=== PATIENT | male | born 1945 | race Caucasian/White ===

== ENCOUNTER → 2017-12-29 | Outpatient (REF) | payer MEDICARE, BC | LOC: M LAB REF 12:16 | DX: N39.0 Urinary tract infection, site not specified (principal) | CPT/HCPCS: 87086 ==

== ENCOUNTER → 2018-01-07 | Outpatient (REF) | payer MEDICARE, BC | LOC: M LAB REF 19:20 | DX: R35.0 Frequency of micturition (principal) | CPT/HCPCS: 87086 ==

== ENCOUNTER → 2018-09-02 | Outpatient (REF) | payer MEDICARE, BC | LOC: M LAB REF 12:35 | PROVIDERS: ATTEND Physician Assistant Medical | DX: N39.0 Urinary tract infection, site not specified (principal) ==

== ENCOUNTER → 2019-09-27 | Outpatient (REF) | payer MEDICARE, BC | LOC: M LAB REF 16:37 | PROVIDERS: ATTEND Physician Assistant | DX: R30.0 Dysuria (principal) ==

== ENCOUNTER → 2019-10-02 | Outpatient (REF) | payer MEDICARE, BC ==
[2019-10-02 16:40] LABS: BACTERIA, URINE AUTO NEGATIVE (NEGATIVE); MUCUS, URINE SMALL (NEGATIVE); RBC, URINE AUTO 4 /HPF (0-3); SQUAMOUS EPITHELIAL CELL UR AU 0 /HPF (0-6); WBC, URINE AUTO 44 /HPF (0-3)
[2019-10-02 18:02] LABS: APPEARANCE, URINE CLEAR (CLEAR); BILIRUBIN, URINE AUTO NEGATIVE (NEGATIVE); BLOOD, URINE BLOOD NEGATIVE (NEGATIVE); COLOR, URINE AMBER (YELLOW); GLUCOSE, URINE (UA) AUTO NEGATIVE (NEGATIVE); KETONE, URINE AUTO NEGATIVE (NEGATIVE); LEUKOCYTE ESTERASE, URINE AUTO 3+ (NEGATIVE); NITRITE, URINE AUTO NEGATIVE (NEGATIVE); PROTEIN, URINE AUTO NEGATIVE (NEGATIVE); SPECIFIC GRAVITY URINE AUTO 1.017 (1.002-1.035); UROBILINOGEN, URINE AUTO 0.2 mg/dL (0.0-2.0)
== END ==
LOC: M SMT 14:59
PROVIDERS: ATTEND Nurse Practitioner Family
DX: R35.0 Frequency of micturition (principal)
CPT/HCPCS: 51798; 81001; 87086; G0463

== ENCOUNTER → 2019-11-10 | Outpatient (REF) | payer MEDICARE, BC ==
[2019-12-27 04:19] LABS: CALCIUM LEVEL 9.4 MG/DL (8.8-10.2); CREATININE FOR GFR 1.33 MG/DL (0.70-1.30); GLOMERULAR FILTRATION RATE 56.1 (>42); POTASSIUM SERUM 4.3 MEQ/L (3.5-5.1)
== END ==
LOC: M SMT 12:06
PROVIDERS: ATTEND Nurse Practitioner Family
DX: R31.29 Other microscopic hematuria (principal)

== ENCOUNTER → 2019-11-17 | Outpatient (CLI) | payer MEDICARE, BC ==
--- NOTE | 2019-12-29 10:41 | REP ---
CT ABDOMEN AND PELVIS WITHOUT IV OR ORAL CONTRAST HISTORY: Benign prostatic hypertrophy. COMPARISON: None available. CT FINDINGS: Digital preliminary fire regulator radiograph demonstrates a normal bowel gas pattern. Images at lung window settings of the lung bases demonstrate three tiny 2-3 mm nodular densities in the left lower lobe without discernable calcification and some bibasilar linear fibrosis. No pleural effusion is seen. Vascular calcification is seen in the coronary distribution bilaterally. Normal adrenal glands are seen. The right kidney is not present consistent with previous nephrectomy. No left-sided hydronephrosis, mass, or calculus is seen. There are two small cysts in the lower pole of the left kidney the largest of which measures 1.8 cm in diameter. Normal appendix is seen. Small and large bowel loops are unremarkable. No retroperitoneal mass or adenopathy is seen. There is left colon diverticulosis without CT evidence of diverticulitis. Prostate gland is enlarged and contains multiple dystrophic calcifications. Urinary bladder is intact. No abdominal wall defect is seen. No blastic or lytic bony destructive lesion is seen. There are degenerative spondylosis changes in the lumbar spine. IMPRESSION: The patient is apparently status post right nephrectomy. No mass or adenopathy is seen. Prostate is enlarged. Small cyst left kidney lower pole. Left colonic diverticulosis. No acute intraabdominal abnormality. MTDD
== END ==
LOC: M RAD 09:30
PROVIDERS: ATTEND Nurse Practitioner Women's Health
DX: R31.29 Other microscopic hematuria (principal); Z90.5 Acquired absence of kidney

== ENCOUNTER → 2020-09-25 | Outpatient (REF) | payer MEDICARE, BC | LOC: M WUC 11:20 | PROVIDERS: ATTEND Physician Assistant | DX: R30.0 Dysuria (principal) ==

== ENCOUNTER → 2021-09-24 | Outpatient (REF) | payer MEDICARE, BC | LOC: M LAB REF 12:14 | PROVIDERS: ATTEND Physician Assistant | DX: R35.0 Frequency of micturition (principal) ==

== ENCOUNTER → 2023-10-06 | Outpatient (REF) | payer MEDICARE, BC | LOC: M LAB REF 11:17 | PROVIDERS: ATTEND Student in an Organized Health Care Education/Training Program | DX: R30.0 Dysuria (principal) ==

== ENCOUNTER → 2023-11-21 | Outpatient (REF) | payer MEDICARE, BC ==
[2023-11-21 18:09] LABS: APPEARANCE, URINE CLOUDY (CLEAR); BACTERIA, URINE AUTO NEGATIVE (NEGATIVE); BILIRUBIN, URINE AUTO NEGATIVE (NEGATIVE); BLOOD, URINE BLOOD 3+ (NEGATIVE); COLOR, URINE AMBER (YELLOW); GLUCOSE, URINE (UA) AUTO NEGATIVE (NEGATIVE); KETONE, URINE AUTO NEGATIVE (NEGATIVE); LEUKOCYTE ESTERASE, URINE AUTO 2+ (NEGATIVE); MUCUS, URINE SMALL (NEGATIVE); NITRITE, URINE AUTO NEGATIVE (NEGATIVE); PROTEIN, URINE AUTO 2+ mg/dL (NEGATIVE); RBC, URINE AUTO TNTC /HPF (0-3); SQUAMOUS EPITHELIAL CELL UR AU 0 /HPF (0-6); UROBILINOGEN, URINE AUTO 0.2 mg/dL (0.0-2.0); WBC, URINE AUTO TNTC /HPF (0-3)
== END ==
LOC: M LAB REF 17:44
PROVIDERS: ATTEND Physician Assistant Medical
DX: N39.0 Urinary tract infection, site not specified (principal)

== ENCOUNTER → 2024-10-30 | Outpatient (REF) | payer MEDICARE, BC | LOC: M LAB REF 14:02 | PROVIDERS: ATTEND Physician Assistant | DX: R30.0 Dysuria (principal) ==

== ENCOUNTER → 2024-11-11 | Outpatient (REF) | payer MEDICARE, BC | LOC: M LAB REF 18:01 | PROVIDERS: ATTEND Physician Assistant Medical | DX: R30.0 Dysuria (principal) ==

== ENCOUNTER → 2024-12-28 | Outpatient (REF) | payer MEDICARE, BC | LOC: M LAB REF 11:42 | PROVIDERS: ATTEND Physician Assistant Medical | DX: R30.0 Dysuria (principal) ==